=== PATIENT | male | born 1945 | race African-American/Black ===

== ENCOUNTER 2017-03-18 21:33 | Emergency (ER) | payer MEDICARE ==
--- NOTE | ~2017-03-18 | CR263 ---
[facility] A Service of [facility] / [facility] RADIOLOGY TEXT RESULTS PATIENT: BRITTANY WICK LOCATION: [facility] : 49 UNIT #: [id number] AGE: [address]: EDMUND JAMESON APRN SEX: M ORDER DR: [id number] [facility] [address] [place], [place] [address] [id number] E MR#: [id number] Acc #: [id number] NAME: BRITTANY WICK : 1945 SEX: M STUDY DATE/TIME: 03/19/2017 00:27 UNIT: [facility] ROOM: STUDY DESCRIPTION: CR Toe 2 Views Great Rt Attending Physician: Edmund Jameson Aprn Ordering Physician: Edmund Jameson Aprn Primary Care Physician: Primary Care Physician No MEDICAL IMAGING REPORT This report is preliminary unless electronic signature is present EXAM Right great toe, at 0027 hours INDICATION Soft tissue swelling for 2 days. No trauma. Possible gout. FINDINGS 3 views of the great toe were obtained. No fracture or malalignment is seen. There are no erosive changes identified. There is no soft tissue gas. 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 No erosive changes are seen. Dictated by... Reuben Childers Jr., M.D. THIS IS AN ELECTRONICALLY VERIFIED REPORT Reuben Childers Jr., M.D. at 03/19/2017 6:09 AM CARLOS/twyla TD: 03/19/2017 02:18 JOB #: [id number] MEDICAL IMAGING REPORT Page 1 of 1 COPY
[~2017-03-18 21:33] MED LIST: AUGMENTIN PO; CALAN; CLONIDINE PO; COLACE PO; DERMACORT1 GM EXT; KEFLEX500 MG PO; LISINOPRIL PO; LORTAB 7.5-5001 TAB PO; MUCINEX DM1 TAB.SR .; NORVASC PO; PREDNISONE10 MG/DOSE PO
== END 2017-03-19 02:52 | disposition home or self-care (01) ==
LOC: CED 21:33
DX: M10.9 Gout, unspecified (principal); I10 Essential (primary) hypertension; Z90.89 Acquired absence of other organs
CPT/HCPCS: 36415; 73660; 84550; 99284